=== PATIENT | male | born 1960 | race Caucasian/White ===

== ENCOUNTER → 2016-12-03 | Outpatient (CLI) | payer BC ==
[2016-12-03 10:43] LABS: CHCM 31.7; HCT 51.7 % (39.0-53.0); HDW 2.44; HGB 16.7 gm/dL (13.0-17.5); MCH 29.7 pg (25.0-35.0); MCHC 32.3 g/dL (31.0-37.0); MCV 91.8 fL (80.0-100.0); Mean Platelet Volume 7.5; RBC 5.62 m/uL (4.30-5.90); RDW 13.3 % (11.5-15.5); WBC 6.3 k/uL (3.8-10.6)
[2016-12-03 11:04] LABS: Anion Gap 14 mmol/L; Blood Urea Nitrogen 24 mg/dL (9-20); Carbon Dioxide 27 mmol/L (22-30); Chloride 101 mmol/L (98-107); Non-African American GFR(MDRD) 60 (>60 ml/min/1.73 sqM); Potassium 4.8 mmol/L (3.5-5.1); Sodium 142 mmol/L (137-145)
== END ==
LOC: LABPAT 10:02
PROVIDERS: ATTEND Internal Medicine Interventional Cardiology
DX: Z01.812 Encounter for preprocedural laboratory examination (principal); I48.1 Persistent atrial fibrillation
CPT/HCPCS: 80051; 82565; 84520; 85027

== ENCOUNTER 2016-12-07 06:04 | Day surgery (SDC) | payer BC, OTHER ==
[2016-12-05 09:31] VITALS: BMI 39.2
[2016-12-07] MEDS ORDERED: SODIUM CHLORIDE 0.9% 1,000 ML IV SCH (06:21)
[2016-12-07 06:39] VITALS: TEMP 98.1
[2016-12-07] MEDS ORDERED: SODIUM CHLORIDE 0.9% 500 ML IV ONE (07:14)
[2016-12-07] MEDS ORDERED: PROPOFOL 10 MG/ML 20 ML VIAL IV ONE (07:30)
[2016-12-07] MEDS: BENZOCAINE SPRAY 100 APPLIC/CAN MUCOUS MEM ONE ×2 (07:30→07:35)
[2016-12-07 09:48] VITALS: PULSE 70; RESP 18
[2016-12-07 10:07] VITALS: BP 119/75
--- NOTE | 2016-12-07 10:09 | ECHOT ---
DATE OF SERVICE: Performing physician: Lenard Romero cabinet professional. PROCEDURE PERFORMED: Transesophageal echocardiogram. INDICATION: This is a pleasant 56-year-old gentleman with known to have atrial fibrillation, who was admitted to the hospital to get today to undergo a cardioversion. Sedation: Deep sedation was performed with anesthesiologist in the room. COMPLICATIONS: None. PROCEDURE DESCRIPTION: After obtaining an informed consent, the patient was brought to the transesophageal echocardiogram suite. A bite guard was placed. The pulse oximetry and heart rate monitors were attached. The patient was turned into left lateral position. Subsequently sedation was initiated using propofol with SUPERVISOR PUMPING STATION in the room. After that, the transesophageal echocardiogram probe was advanced to the midesophagus, where 2-D echocardiogram images as well as color Doppler images of various cardiac structures were obtained. Particular attention was paid to the left atrial appendage. The procedure was completed without any completion. FINDINGS: Left ventricle appeared to be dilated. The left ventricular systolic function is severely impaired with an ejection fraction of 15%. The right ventricle appeared to be within normal limits for dimension. The left atrium appeared to be severely dilated as well as the right atrium. The left atrial appendage appeared to be free from any thrombus. The interatrial septum appeared to be intact. The aortic valve is trileaflet valve without stenosis or regurgitation. The mitral valve seems to be mildly thickened mild to moderate mitral regurgitation. There was mild tricuspid regurgitation was seen. CONCLUSION: 1. Normal left atrial appendage without any evidence of thrombus. 2. Intact intra-atrial septum without any evidence of shunt. 3. Severe biatrial enlargement. 4. Severely impaired left ventricular function with an ejection fraction of 15 to 20% and global hypokinesia. 5. Overall normal intracardiac valves. 6. No evidence of pericardial effusion.
--- NOTE | 2016-12-07 10:29 | CE ---
DATE OF SERVICE: December 07, 2016. Performing physician: Lenard Romero M.D. baller tender. PROCEDURE PERFORMED: Cardioversion. COMPLICATIONS: None. Level of sedation: Deep sedation with UNDER GROUND MINER in the room. PROCEDURE DESCRIPTION: After transesophageal echocardiogram was performed and left atrial appendage was ruled out. We proceeded with a cardioversion. The patient converted from A. fib into normal sinus mechanism using 200 joules on first attempt. CONCLUSION: Successful cardioversion of atrial fibrillation into normal sinus mechanism using 200 joules on first attempt.
== END 2016-12-07 10:06 | disposition home or self-care (01) ==
LOC: CATHCVL 06:04
PROVIDERS: ATTEND Internal Medicine Interventional Cardiology
DX: I48.0 Paroxysmal atrial fibrillation (principal); Z79.01 Long term (current) use of anticoagulants; I10 Essential (primary) hypertension; I42.8 Other cardiomyopathies; Z87.891 Personal history of nicotine dependence; E66.3 Overweight; Z68.39 Body mass index [BMI] 39.0-39.9, adult; G47.33 Obstructive sleep apnea (adult) (pediatric); Z99.89 Dependence on other enabling machines and devices; Z79.899 Other long term (current) drug therapy; Z88.8 Allergy status to other drugs, medicaments and biological substances
CPT/HCPCS: 93312; 93320; 93325; 92960; J2704

== ENCOUNTER 2021-06-08 09:36 | Day surgery (SDC) | payer MEDICARE ==
[2021-06-06 14:08] VITALS: BMI 35.7
[~2021-06-08 09:36] MED LIST: DEXAMETHASONE SOD PHOSPHATE 4 MG/ML 1 ML VIAL IV ONE; HYDROmorphone 0.5 MG/0.5 ML SYRINGE IVP PRN; LACTATED RINGERS 1,000 ML IV SCH; ONDANSETRON 4 MG/2 ML VIAL IVP ONE
[2021-06-08 10:23] VITALS: PULSE 70; TEMP 98.1
[2021-06-08] MEDS ORDERED: LIDOCAINE 1% INJ 10MG/ML (20 ML MDV) ONE (11:09)
[2021-06-08] MEDS ORDERED: PROPOFOL 10 MG/ML 20 ML VIAL IV ONE (11:09)
--- NOTE | 2021-06-08 11:15 | P.GSHP ---
History of Present Illness H&P Date: 06/08/21 Chief Complaint: Screening colonoscopy This is a 60-year-old male who presents today for screening colonoscopy. Patient denies a significant GI complaints. Past Medical History Past Medical History: Atrial Fibrillation, Hyperlipidemia, Liver Disease, Sleep Apnea/CPAP/BIPAP Additional Past Medical History / Comment(s): CPAP use. "Hx fatty liver, lost 39lbs, ok now." History of Any Multi-Drug Resistant Organisms: None Reported Past Surgical History: Back Surgery, Joint Replacement, Pacemaker Additional Past Surgical History / Comment(s): Cardioversion X2, left hip replacement, defibrilator.(Pacemaker 07/08/17, Defibriltor [employer] 04/17/17) Past Anesthesia/Blood Transfusion Reactions: No Reported Reaction Type of Cardiac Device: AICD, Unknown Device Placement Date:: 2016 Pacemaker/ 2017 Defibrilator Past Psychological History: No Psychological Hx Reported Smoking Status: Former smoker Past Alcohol Use History: Rare Additional Past Alcohol Use History / Comment(s): USED TO SMOKE CIGARS,QUIT 20 YRS AGO. Past Drug Use History: None Reported - Past Family History Mother Family Medical History: COPD, Hypertension Additional Family Medical History / Comment(s): EMPHYSEMA. Father Family Medical History: CVA/TIA, Diabetes Mellitus Additional Family Medical History / Comment(s): X4 STROKES BEFORE HE . Medications and Allergies Home Medications Medication Instructions Recorded Confirmed Type Apixaban [Eliquis] 5 mg PO BID 04/04/16 06/06/21 History Furosemide [Lasix] 40 mg PO DAILY PRN 09/01/16 06/06/21 History lisinopriL [Zestril] 10 mg PO QAM 12/05/16 06/06/21 History Mct Oil 1 dose PO DAILY 06/06/21 06/06/21 History Metoprolol Succinate (ER) [Toprol 50 mg PO QAM 06/06/21 06/06/21 History XL] Super B Complex 1 tab PO DAILY 06/06/21 06/06/21 History Allergies Allergy/AdvReac Type Severity Reaction Status Date / Time No Known Allergies Allergy Verified 06/06/21 13:36 Surgical - Exam Vital Signs Temp Pulse Resp BP Pulse Ox 98.1 F 70 18 119/77 96 06/08/21 10:17 06/08/21 10:17 06/08/21 10:17 06/08/21 10:17 06/08/21 10:17 - General well developed, well nourished, no distress - Eyes PERRL - ENT normal pinna - Neck no masses - Respiratory normal expansion - Cardiovascular Rhythm: regular - Abdomen Abdomen: soft, non tender Assessment and Plan Assessment: We'll perform screening colonoscopy.
--- NOTE | 2021-06-08 11:25 | P.OP ---
Date of Procedure: 06/08/21 Preoperative Diagnosis: Screening colonoscopy Postoperative Diagnosis: Normal colon Procedure(s) Performed: Colonoscopy Anesthesia: MAC Surgeon: Jaskaran Ambriz Pathology: none sent Condition: stable Disposition: PACU Description of Procedure: PROCEDURE: The patient was placed on the endoscopy table in the lateral position. Digital rectal examination was performed which revealed no abnormalities. The prostate was symmetrical without nodules. Flexible colonoscope was then placed in the patient's anus and passed throughout the entire colon. The ileocecal valve was visualized. The cecum, ascending, transverse, descending and sigmoid colon were normal. The rectum was normal as well. There were no masses, polyps or diverticula noted in the entire colon. SUMMARY OF FINDINGS: Normal colonoscopy.
[2021-06-08 11:30] VITALS: RESP 16
[2021-06-08 11:40] VITALS: BP 120/71
== END 2021-06-08 12:01 | disposition home or self-care (01) ==
LOC: ORWHC2ENDO 09:36
PROVIDERS: ATTEND Surgery
DX: Z12.11 Encounter for screening for malignant neoplasm of colon (principal); I48.91 Unspecified atrial fibrillation; G47.30 Sleep apnea, unspecified; E78.5 Hyperlipidemia, unspecified; K76.0 Fatty (change of) liver, not elsewhere classified; Z79.01 Long term (current) use of anticoagulants; Z79.899 Other long term (current) drug therapy; Z82.49 Family history of ischemic heart disease and other diseases of the circulatory system; Z83.3 Family history of diabetes mellitus; Z87.891 Personal history of nicotine dependence; Z95.810 Presence of automatic (implantable) cardiac defibrillator; Z86.19 Personal history of other infectious and parasitic diseases
CPT/HCPCS: G0121; J2001; J2704

== ENCOUNTER 2021-06-16 06:36 | Day surgery (SDC) | payer MEDICARE ==
[2021-06-06 14:26] VITALS: BMI 35.7
[~2021-06-16 06:36] MED LIST changes: +ACETAMINOPHEN TAB 500 MG TAB PO PRN; +HEPARIN SODIUM,PORCINE/PF 5,000 UNIT/0.5 ML SYRINGE SQ PRN; -HYDROmorphone 0.5 MG/0.5 ML SYRINGE IVP PRN; +MIDAZOLAM 2 MG/2 ML VIAL IV PRN; +SCOPOLAMINE 1.5MG/72HR PATCH TRANSDERM ONE; +ceFAZolin 3 GM in SODIUM CHLORIDE 0.9% 100 ML IVPB PRN
[2021-06-16 07:37] VITALS: RESP 16
[2021-06-16] MEDS ORDERED: METOPROLOL TARTRATE 5 MG/5 ML VIAL IVP ONE (08:08)
[2021-06-16] MEDS ORDERED: PROPOFOL 10 MG/ML 20 ML VIAL IV ONE (08:23)
[2021-06-16] MEDS ORDERED: SUCCINYLCHOLINE CHLORIDE 100 MG/5 ML SYR IV ONE (08:23)
[2021-06-16] MEDS ORDERED: MIDAZOLAM 2 MG/2 ML VIAL IVP ONE (08:23)
[2021-06-16] MEDS ORDERED: ROCURONIUM 10 MG/ML (5 ML VIAL) IV ONE (08:23)
[2021-06-16] MEDS ORDERED: fentaNYL (PF) 50 MCG/ML 2 ML AMP IVP ONE (08:23)
[2021-06-16] MEDS ORDERED: LIDOCAINE 1% INJ 10MG/ML (20 ML MDV) ONE (08:23)
[2021-06-16] MEDS ORDERED: KETAMINE 10 MG/ML 20 ML VIAL ONE (08:23)
--- NOTE | 2021-06-16 08:23 | P.GSHP ---
History of Present Illness H&P Date: 06/16/21 Chief Complaint: Right inguinal hernia Is a 60-year-old male who presents today for open repair of recurrent right inguinal hernia. Past Medical History Past Medical History: Atrial Fibrillation, Hyperlipidemia, Liver Disease, Sleep Apnea/CPAP/BIPAP Additional Past Medical History / Comment(s): CPAP use. "Hx fatty liver, lost 39lbs, ok now." History of Any Multi-Drug Resistant Organisms: None Reported Past Surgical History: Back Surgery, Joint Replacement, Pacemaker Additional Past Surgical History / Comment(s): Cardioversion X2, left hip replacement, defibrilator.(Pacemaker 07/08/17, Defibriltor [employer] 04/17/17) Past Anesthesia/Blood Transfusion Reactions: No Reported Reaction Type of Cardiac Device: AICD, Unknown Device Placement Date:: 2016 Pacemaker/ 2017 Defibrilator Past Psychological History: No Psychological Hx Reported Smoking Status: Former smoker Past Alcohol Use History: Rare Additional Past Alcohol Use History / Comment(s): USED TO SMOKE CIGARS,QUIT 20 YRS AGO. Past Drug Use History: None Reported - Past Family History Mother Family Medical History: COPD, Hypertension Additional Family Medical History / Comment(s): EMPHYSEMA. Father Family Medical History: CVA/TIA, Diabetes Mellitus Additional Family Medical History / Comment(s): X4 STROKES BEFORE HE . Medications and Allergies Home Medications Medication Instructions Recorded Confirmed Type Apixaban [Eliquis] 5 mg PO BID 04/04/16 06/06/21 History Furosemide [Lasix] 40 mg PO DAILY PRN 09/01/16 06/06/21 History lisinopriL [Zestril] 10 mg PO QAM 12/05/16 06/06/21 History Mct Oil 1 dose PO DAILY 06/06/21 06/06/21 History Metoprolol Succinate (ER) [Toprol 50 mg PO QAM 06/06/21 06/06/21 History XL] Super B Complex 1 tab PO DAILY 06/06/21 06/06/21 History Allergies Allergy/AdvReac Type Severity Reaction Status Date / Time No Known Allergies Allergy Verified 06/16/21 07:39 Surgical - Exam Vital Signs Temp Pulse Resp BP Pulse Ox 98 F 70 16 126/77 99 06/16/21 07:36 06/16/21 07:36 06/16/21 07:36 06/16/21 07:36 06/16/21 07:36 - General well developed, well nourished, no distress - Eyes PERRL - ENT normal pinna - Neck no masses - Respiratory normal expansion - Cardiovascular Rhythm: regular - Abdomen Abdomen: soft, non tender Hernia: inguinal (Right inguinal hernia) Assessment and Plan Assessment: Right inguinal hernia. We'll perform open repair.
[2021-06-16] MEDS ORDERED: BUPIVACAINE (PF) 0.25% 30 ML VIAL SQ ONE ×2 (08:56→09:21)
--- NOTE | 2021-06-16 09:31 | P.OP ---
Date of Procedure: 06/16/21 Preoperative Diagnosis: Right inguinal hernia Postoperative Diagnosis: Right inguinal hernia Procedure(s) Performed: Repair of right inguinal hernia Excision of cord lipoma Anesthesia: MADELINE Surgeon: Jaskaran Ambriz Estimated Blood Loss (ml): 5 Pathology: other (Cord lipoma) Condition: stable Disposition: PACU Description of Procedure: DESCRIPTION OF PROCEDURE: The patient was placed in the supine position after receiving adequate anesthesia. Patient's groin was prepped and draped in the usual sterile fashion. A standard hernia incision was made and the subcutaneous tissues were divided with electrocautery. The fascia of the external oblique was exposed. A ernie the fascia was made with #15 blade. The fascia was then opened with pair of Metzenbaum scissors. A Weitlaner retractor was placed in the wound and the cord structures were grasped and dissected free from the inguinal canal. A rubber Rosanna drain was placed around the cord structures. The hernial sac was seen on the anterior-medial portion of the cord and this was dissected free from the cord. The cord lipoma was dissected free to pathology. The hernia sac was then invaginated to the peritoneal cavity. Using blunt finger dissection, the preperitoneal space was dissected and then the Prolene hernial mesh plug was placed into the prepared space. The inferior leaf was expanded. The superior leaf was secured to the pubic tubercle using 2-0 Prolene suture. The lateral portion of the superior leaf was incised and cords tied and secured to the transversalis fascia using 2- 0 Prolene suture. Fascia of the external oblique was then closed using #0 Vicryl suture. The [place] drain was removed. The Scarpas fascia was then closed with 3-0 Vicryl suture and skin was closed with joce. The patient tolerated the procedure well.
[2021-06-16 09:37] VITALS: TEMP 97
[2021-06-16] MEDS: HYDROmorphone 0.5 MG/0.5 ML SYRINGE IVP PRN ×4 (09:44→10:12)
[2021-06-16] MEDS ORDERED: diphenhydrAMINE 50 MG/ML 1 ML VIAL ONE (09:58)
[2021-06-16] MEDS ORDERED: diphenhydrAMINE 50 MG/ML 1 ML VIAL IVP ONE (10:00)
[2021-06-16 10:37] VITALS: PULSE 70
[2021-06-16 11:04] VITALS: BP 144/81
[2021-06-16] MEDS ORDERED: IBUPROFEN 200 MG TAB PO ONE (12:36)
== END 2021-06-16 12:44 | disposition home or self-care (01) ==
LOC: OR 06:36
PROVIDERS: ATTEND Surgery
DX: K40.90 Unilateral inguinal hernia, without obstruction or gangrene, not specified as recurrent (principal); D17.6 Benign lipomatous neoplasm of spermatic cord; I11.0 Hypertensive heart disease with heart failure; I50.22 Chronic systolic (congestive) heart failure; Z95.810 Presence of automatic (implantable) cardiac defibrillator; M54.9 Dorsalgia, unspecified; I48.91 Unspecified atrial fibrillation; E78.5 Hyperlipidemia, unspecified; K76.0 Fatty (change of) liver, not elsewhere classified; E66.9 Obesity, unspecified; Z68.36 Body mass index [BMI] 36.0-36.9, adult; R06.09 Other forms of dyspnea; G47.30 Sleep apnea, unspecified; Z95.0 Presence of cardiac pacemaker; Z87.891 Personal history of nicotine dependence; Z97.2 Presence of dental prosthetic device (complete) (partial); Z83.6 Family history of other diseases of the respiratory system; Z82.3 Family history of stroke; Z82.49 Family history of ischemic heart disease and other diseases of the circulatory system; Z83.3 Family history of diabetes mellitus; Z79.01 Long term (current) use of anticoagulants; Z79.891 Long term (current) use of opiate analgesic; Z79.899 Other long term (current) drug therapy
CPT/HCPCS: 88304; 49505; C1781; J2250; J1200; J1100; J0690; J2405; J2001; J3010; J0330; J2704; J1170; J1644